=== PATIENT | male | born 1995 | race Two or more races ===

== ENCOUNTER 2023-07-05 09:07 | Emergency (ER) | payer OTHER ==
[~2023-07-05] VITALS: Ht 180.3 cm; Wt 72.6 kg
[2023-07-05] MEDS ORDERED: BUPRENORPHINE HCL 8 MG TAB.SUBL SL ONE (09:37)
[2023-07-05] MEDS: BUPRENORPHINE HCL 8 MG TAB.SUBL SL ONE (09:43)
[2023-07-05] MEDS ORDERED: ONDA4TAB5 PO (10:00)
[2023-07-05] MEDS ORDERED: NALO4SPR BNOSTRILS (10:00)
[2023-07-05] MEDS ORDERED: ONDANSETRON 4 MG TAB.RAPDIS ONE (10:07)
[2023-07-05] MEDS: ONDANSETRON 4 MG TAB.RAPDIS SL ONE (10:08)
[2023-07-05 10:12] VITALS: BP 148/87; TEMP 97.4; O2SAT 100
== END 2023-07-05 10:12 ==
LOC: ER 09:40
DX: F11.13 Opioid abuse with withdrawal (principal)
CPT/HCPCS: 99283; Q0162